=== PATIENT | female | born 1935 | race Caucasian/White ===

== ENCOUNTER 2016-09-17 10:20 | Inpatient (IN) | payer MEDICARE, OTHER ==
[2016-09-17] VITALS (9 sets, daily range): BP systolic 111–149; BP diastolic 60–86; PULSE 64–95; RESP 12–24; O2SAT 94–99
[~2016-09-17] VITALS: Ht 170.2 cm; Wt 100.4 kg
[2016-09-17] MEDS: Lactated Ringer's 1,000 ML IV SCH ×4 (05:00→16:52)
[2016-09-17] MEDS: CeFAZolin Inj 2 GM in IV Premix 1 EACH IV SCH ×2 (06:00→13:15)
[2016-09-17] MEDS: Phenazopyridine 97.5 mg Tablet PO SCH ×2 (06:00→12:15)
[~2016-09-17 10:20] MED LIST: ACET325T51 PO; ATEN100T PO; CHOL100045 PO; CITA20TA11 PO; CYAN10008 PO; CYCL5TAB PO; DIPH12.559 PO; ESTRADIOL VAGINAL; FURO40TA4 PO; GABA-500 PO; LISI40TA PO; POTA10TA14 PO; PRAV40TA PO; THIO300C PO; WARF3TAB7 PO
[2016-09-17 11:27] LABS: INR 1.07 ratio
[2016-09-17] MEDS ORDERED: WARF3TAB7 PO (12:02)
[2016-09-17] MEDS ORDERED: Lidocaine 1%-Epi 1:100,000 20 mL Inj SUBQ ONE (13:40)
[2016-09-17] MEDS ORDERED: Lactated Ringer's 1,000 ML IV SCH (13:41)
[2016-09-17] MEDS ORDERED: Lactated Ringer's 500 ML IV PRN (13:41)
--- NOTE | 2016-09-17 13:44 | PCM.HPANE ---
Patient Data Surgeon Admitting Provider: Attending Provider:Josue Young MD Primary Care Physician:Other,Physician Other Provider:Diana Kamara Anesthesia Reason for Visit Complete Vaginal Prolapse, Incontinence, Cystocele Ht/WT & BMI Height (Feet): 5 Height (Inches): 7 Weight (Kilograms): 99.8 Body Mass Index 34.00 Allergies Coded Allergies: hydromorphone (Verified Adverse Reaction, Severe, DELIRIUM, CONFUSION, 09/16) indomethacin (Verified Adverse Reaction, Severe, DECREASED LOC, LETHARGIC , 09/16/16) Past Anesthesia History Anesthesia History: Denies:: Abnormal Airway, Anesthesia Reactions, Difficult Intubation, Fam Anesthesia Reaction, Fam Malignant Hypertherm, Malignant Hyperthermia Diabetes History Hx Diabetes?: No Type of Diabetes: Type II Glycemic Control: Diet Controlled MRSA MRSA: No Medications Blood Thinner: Coumadin, Lovenox Hypertension Medication: Yes (LASIX,LISINOPRIL) Home Meds Incl Beta Yolis: Yes Date Beta Yolis Taken: September 17, 2016 Time Beta Yolis Taken: 0700 Reported Medications Warfarin Sodium 3 Mg Tablet4.5 Mg PO DAILY 30 Days Ref 0 09/17/16 Warfarin Sodium 3 Mg Tablet3 Mg PO DAILY 30 Days Ref 0 3MG/DAY EXCEPT FOR 4.5MG , THU. 09/16/16 diphenhydrAMINE HCl (Diphedryl)12.5 Mg/5 Ml Krklcf40 Mg PO Q4-6H PRN PRN 09/16/16 Cyanocobalamin (Vitamin B-12) (Vitamin B-12)1,000 Mcg Tablet1,000 Mcg PO DAILY 09/16/16 Cholecalciferol (Vitamin D3) (Vitamin D)1,000 Unit Capsule2,000 Unit PO DAILY # 1 BOTTLE Ref 0 09/16/16 Pravastatin 40 Mg Xdwetq18 Mg PO DAILY 30 Days Ref 0 10/01/13 Acetaminophen 325 Mg Dsmclq321 Mg PO Q4 PRN For Pain 10/01/13 Lisinopril 40 Mg Iqsdet68 Mg PO DAILY 30 Days Ref 0 10/01/13 Furosemide 40 Mg Vqojda49 Mg PO DAILY 30 Days 10/01/13 Citalopram 20 Mg Pcshpw41 Mg PO DAILY 30 Days Ref 0 10/01/13 Potassium Chloride ER (Klor-Con M10)10 Meq Tab.er.prt10 Meq PO DAILY 30 Days Ref 0 10/01/13 Gabapentin 100 Mg Ftasewb967 Mg PO TID 30 Days Ref 0 10/01/13 Atenolol 100 Mg Mytrdv970 Mg PO DAILY Ref 0 10/01/13 Discontinued Reported Medications [Estradiol] No Conflict Check1.5 Gm VAGINAL 2X/WEEK POWDER COMPOUNDED INTO VAGINAL CREAM 09/16/16 Cyclobenzaprine 5 Mg Tablet5 Mg PO TID PRN Spasm 09/16/16 Alpha Lipoic Acid 300 Mg Kyucqgr444 Mg PO DAILY 10/01/13 Enoxaparin (Lovenox)100 Mg/Ml Tksmyvo897 Mg SUBQ Q12 Ref 0 09/16/16 Latanoprost 2.5 Ml Drops1 Gtt AFFECT_EYE HS #1 BOTTLE 09/16/16 diphenhydrAMINE (Benadryl Allergy)12.5 Mg/5 Ml Pjunjx54 Ml PO Q4-6H PRN PRN 10/01/13 Cholecalciferol (Vitamin D3) (D3-2000)2,000 Unit Capsule2,000 Unit PO TID 10/01/[address] 40 Mg Tablet.dr40 Mg PO DAILY 30 Days Ref 0 10/01/13 Aspirin (Aspir 81)81 Mg Tablet.dr81 Mg PO DAILY Ref 0 10/01/13 History History of ENT Problems?: Yes HEENT History: Positive for:: Cataracts (bilat) Glaucoma Denies:: Abnormal Airway Difficult Intubation Dysphagia Hearing Problem Denture Type: None Teeth Condition: Within Normal Limits Other HEENT Pertinent History: S/P LT PAROTID GLAND RESECTION Hx of Heart Problems?: Yes Cardiovascular History: Positive for:: Atrial Fibrillation Cardiac Surgery (S/P HEART CATH 2006) Coronary Artery Disease (MILD) Edema (PEDAL RT>LT) Hypertension (HYPERLIPIDEMIA) Irregular Heartbeat (transient in 2007) Valvular Heart Disease (MILD MR,TR) Denies:: AICD Chest Pain Heart Murmur (ECHO 01/2013 EF 55-60%) Pacemaker Hx of Respiratory Problem?: No Respiratory History: Denies:: Asthma COPD Cough Hemoptysis Pneumonia Tuberculosis Use of C-PAP Machine Hx Neurologic Problems?: Yes Neurological History: Positive for:: CVA (2007 - no [id number]) Headaches TIA (2008) Denies:: Dementia (POOR MEMORY SINCE CVA) Other Neurological Pertinent: C/OF NEUROPATHY Hx of GI Problems?: Yes Other GI Pertinent History: C/OF DIARRHEA & FECAL INCONTINENCE Hx of Problems?: Yes Genitourinary History: Positive for:: Urinary Tract Infection (HX OF) Other Pertinent History: S/P COLPOCIEISIS,PERINEAORRHAPHY,MID-URETHRAL SLING Female Hx: Positive for:: Problems with Breasts? (S/P BREAST BX,PARTIAL MASTECTOMY ??CA) Denies:: Currently Endometriosis Pelvic Inflammatory Skin History: Positive for:: History Skin Disorders? (FACIAL ECZEMA, ACTINIC KERATOSIS) Denies:: Pressure Ulcers Hx Musculoskeletal Problems?: Yes Musculoskeletal History: Positive for:: Joint Replacement (S/P right TKA 2009 , left TKA 02/18 W/ POSTOP INFECTION) Osteoarthritis Denies:: Back Injury (C/OF LOWER BACK PAIN) Musculoskeletal Trauma (C/OF RT SHOULDER PAIN) Hx of Psycho/Social Problems?: Yes Psycho Social History: Positive for:: Anxiety Hx Depression Hx Surgeries?: Yes (BLADDER SLING,PERINORRHAPHY,B/L TKA,PAROTID GLAND EXC,VAG HYST/RSO,BREAST B) Hx Any Other Health Problems?: Yes Other History: Positive for:: Hospitalization (CARDIAC, LT KNEE INFECTION) Denies:: Cancer Endocrine Disease Thyroid Disease History Blood Transfusions: Positive for:: Accept Blood Products? Blood Transfusions Denies:: Blood Transfuse Reaction Hx Diabetes: No Hx Alcohol Use: Yes (quit many years ago)Hx Substance Use: NoHave You Smoked inLast 12 mo: No Stop/Bang S-Snoring: Do You Snore Loudly: No T-Tired: feel tired, fatigued: Yes O-Obsered: Observed not breath: No P-Blood Pressure: treated: Yes B- Body Mass Index > 35 kg/m2: No A- Age over 50: Yes N- Neck Large Circumference: Yes G- Gender Male: No GEOVANNA Total Score: 4 Risk Assessment Category Category 1A: Patient has history of documented sleep apnea, and HAS NOT received any narcotic, sedative or anesthesia administration during this stay. Category 1B: Patient has history of documented sleep apnea, and HAS received any narcotic , sedative or anesthesia administration during this stay Category 2: Patient has SUSPECTED Obstructive Sleep Apnea, and HAS received any narcotic , sedative or anesthesia administration during this stay. Category 3: Patient has SUSPECTED Obstructive Sleep Apnea and HAS NOT received narcotic, sedative or anesthesia administration during this stay. Category 4: Outpatient in Procedural Areas with known sleep apnea or who screen positive for High Risk via the STOP/BANG questionnaire. Exam Exam Vital Signs Vital Signs Date Time Temp Pulse Resp B/P Pulse Ox O2 Delivery O2 Flow Rate FiO2 09/17/16 11:17 36 69 16 149/80 94 Room Air General Appearance: Alert, Oriented X3, Cooperative, No Acute Distress HEENT/AIRWAY: MP 2, Neck Movement (FROM), Mouth Opening (3 FBMO) Lungs: Normal Air Movement Heart: Regular Rate/Rhythm Meds/Labs/Diagnostics Admission Meds Current Medications Lactated Ringer's (Lr) 1,000 ml @ 120 mls/hr Q8H20M IV Last administered on t 10:48; Start 09/17/16 at 05:00; Stop 09/17/16 at 13:19 Labs Test 09/17/16 11:00 Prothrombin Time 11.5sec (8.1-12.5) Prothromb Time International Ratio 1.07ratio Activated Partial Thromboplast Time 27.8sec (22.8-33.0) Plan Impression Patient chart reviewed, patient interviewed and anesthestic plan with risks, benefits, and alternatives discussed, and informed consent obtained. NPO per Anesth. Guidelines: Yes ASA Physical Status: ASA3 Severe Disease (A fib) Anesthetic Plan: GA Bene/Risks/Altern/Consents: Yes HP Complete Prior to Induction: Yes Harry Haile MD September 17, 2016 12:02
[2016-09-17] MEDS ORDERED: Phenylephrine 10,000 mCg/mL Inj IVPUSH PRN (13:45)
[2016-09-17] MEDS ORDERED: Labetalol 5 mg/mL 4 mL Inj IV PRN (13:45)
[2016-09-17] MEDS ORDERED: MetoCLOpramide 5 mg/mL 2 mL Inj IVPUSH PRN (13:45)
[2016-09-17] MEDS ORDERED: Atropine 0.4 mg/mL Inj IVPUSH PRN (13:45)
[2016-09-17] MEDS ORDERED: fentaNYL-PF 50 mCg/mL 2 mL Inj IVPUSH PRN (13:45)
[2016-09-17] MEDS ORDERED: Ondansetron 2 mg/mL 2 mL Inj IVPUSH PRN ×2 (13:45→16:55)
[2016-09-17] MEDS ORDERED: EPHEDrine Sulfate 50 mg/mL Inj IVPUSH PRN (13:45)
[2016-09-17] MEDS ORDERED: Acetaminophen IV 1,000 MG in IV Premix 1 EACH IV PRN (16:55)
[2016-09-17] MEDS ORDERED: oxyCODONE-Acetamin 5-325 mg Tablet PO PRN (16:55)
[2016-09-17] MEDS ORDERED: diphenhydrAMINE 25 mg Capsule PO PRN ×2 (16:55→17:05)
--- NOTE | 2016-09-17 17:18 | PCM.ANEP1 ---
Post Anesthesia Phase 1 PACU Phase 1 Assessment Vital Signs Vital Signs Date Time Temp Pulse Resp B/P Pulse Ox O2 Delivery O2 Flow Rate FiO2 09/17/16 17:15 84 14 137/86 94 Room Air 09/17/16 17:07 88 12 125/73 97 Room Air 09/17/16 16:59 76 12 111/60 99 Simple Mask 8 09/17/16 16:50 71 12 122/67 99 Simple Mask 8 09/17/16 16:44 36.5 76 24 122/72 99 Simple Mask 8 09/17/16 11:17 36 69 16 149/80 94 Room Air Anesthetic Administered: GA Level of Alertness: Awake, talking PARRY's with Equal Strength: Yes Pain: No Nausea or Vomiting: No Cardiovascular Function and Hy: Yes Oxygen Delivery: Simple Mask Lungs: Normal Air Movement Dermatome Level: Full Sensation Complications: No Follow up Care: No Harry Haile MD September 17, 2016 17:18
[2016-09-17] MEDS ORDERED: Lactated Ringer's 1,000 ML IV ONE (17:26)
[2016-09-17] MEDS ORDERED: EPHEDrine/NS 5 mg/mL 5 mL Syringe ONE (17:55)
[2016-09-17] MEDS ORDERED: MetoCLOpramide 5 mg/mL 2 mL Inj ONE (17:55)
[2016-09-17] MEDS ORDERED: fentaNYL-PF 50 mCg/mL 2 mL Inj ONE (17:55)
[2016-09-17] MEDS ORDERED: Propofol 10,000 mCg/mL 20 mL Inj ONE (17:55)
[2016-09-17] MEDS ORDERED: Furosemide 10 mg/mL 4 mL Inj ONE (17:55)
[2016-09-17] MEDS ORDERED: Ondansetron 2 mg/mL 2 mL Inj ONE (17:55)
--- NOTE | 2016-09-17 19:51 | NUR ---
Post Op Patient received to room 1017 s/p Colpectomy and colopecesis. Pt with laura pad small amount bloody drainage noted. Pt fairly drowsy upon arrival to floor unable to answer some questions just kept saying "I don't know". Patient does have history of cva in past with short term memory loss and delayed speech per family at bedside. Patient denied pain at this time. Rangel cath present.
--- NOTE | 2016-09-17 20:19 | PCM.SURGOP ---
Surgical Operative Report Date of Service: September 17, 2016 Pre Operative Diagnosis Complete POPQ stage 4 vaginal prolapse (apical, anterior and posterior segments) Recurrent stress incontinence Post Operative Diagnosis POPQ stage 4 complete vaginal prolapse (cystocele, rectocele, vault prolapse) Recurrent stress incontinence Procedure: 1. Colpectomy and colpocleisis 2. Posterior repair, levatorplasty and perineorrhaphy 3. Macroplastique urethral injection, cystoscopy Surgeon and Tandem Mill Operator: Surgeon: Josue Young MD Assistants: Emily Stoner Indication for Procedure Her assessment to date includes: 1. Vaginal vault prolapse after hysterectomy N99.3 (618.5): 2. Cystocele, midline N81.11 (618.01): 3. Rectocele N81.6 (618.04): 4. Urodynamically-confirmed recurrent Female stress incontinence N39.3 (625.6): Pt has has a previous history of colpocleisis, perineorrhaphy and Altis mid urethral sling on 02/15/15 by another physician. The surgery was complicated by bleeding on lovenox and readmission for monitoring following placement of Monsels and proctoswabs at the ED and then treatment of perineal pain with antibiotics. The patient is a candidate for surgical prolapse management in the form of a repeat colpectomy and colpocleisis, but this time I would perform a levatorplasty and perineorrhaphy which would result in an introitus 1 fingerbreadth in area. In addition, due to the finding of recurrent urodynamic stress incontinence, she will have a Macroplastique urethral injection. Preoperative medical and cardiac clearance has been granted. She will stop warfarin 4 d prior to surgery as suggested by the central office operator. The patient signed the consent form. She agreed with the risks, benefits, and alternatives to surgery. The risks included but not limited to recurrence or persistence of prolapse, recurrence of persistence of incontinence, development of voiding dysfunction, development of urinary urgency, urgency incontinence, frequency, and need for intermittent self-catheterization or prolonged indwelling catheterization, injury to other organs including bladder, bowel, nerves or blood vessels. Need for blood transfusion, need for temporary colostomy or urinary stenting. Development of vaginal scarring, dyspareunia, defecatory dysfunction, recurring pain, hematoma formation, urinary tract infection, cellulitis, necrotizing fascitis, and medical risks including myocardial infarction, stroke or VTE. The patient understood the risks and benefits and consented to surgery.. Findings: see dictation Procedure Details 1. Colpectomy and complete colpocleisis, Posterior repair/levatorplasty and perineorrhaphy, Cystoscopy The vagina was subcutaneously infiltrated with 0.5% lidocaine with 1/920234 epinephrine. The vagina was circumscribed by an incision at the site of the hymen and marked into quadrants. Each quadrant was removed by sharp dissection using Perez scissors. The fascia along the anterior segment was plicated in the midline to add an extra layer of support. Pursestring 2-0 vicryl sutures were placed. The leading edge of the soft tissue was inverted by the tip of a forceps. A series of pursestring sutures were tied sequentially, proximal to distal, with progressive inversion of the soft tissue before tying of each suture. Then a posterior repair with levatorplasty and perineorrhapy was performed. A large wedge of perineum was excised, extending laterally to the inferior vulva. The fascia along the posterior segment was plicated in the midline to add an extra layer of support. Then levatorplasty was performed by placating the levator complex at the midline with interrupted 2-0 vicryl suture, to narrow the genital hiatus. Care was taken to achieve good hemostasis using cautery and interrupted 2-0 Vicryl suture. Gelfoam was placed in the subvaginal area prior to vaginal closure. The vagina was reapproximated with continuous 3-0 vicryl suture. The perineum was approximated with interrupted 2-0 vicryl suture and the skin was closed with 3-0 vicryl suture in a subcuticular fashion. The resulting repair resulted in a vaginal caliber less than 1 finger- breadth. Cystoscopy was performed. Brisk spillage of pyridium-stained urine was noted at the left and right ureteric orifices. 2. Macroplastique urethral injection and cystoscopy A 30-degree cystoscope was inserted into the bladder. The bladder was filled to approximately 50% capacity with sterile water. The scope was retracted to visualize the bladder neck and location of the mid urethral position. The needle was then advanced through the working channel of the scope to visualize the needle tip. The needle was inserted into urethral wall, taking care to ensure that the needle bevel was facing the center of the urethral lumen. We used the tissue tunneling technique by orienting the needle with the bevel towards the urethral lumen at a 30- to 45-degree angle. The needle was advanced into the tissue to the first jim, which was 0.5 cm deep. The scope was reduced to 0 degrees. The needle was then advanced to a second jim, which was 1 cm deep. Then, 2.5 mL of the Macroplastique were then injected at the 6 o'clock position. Thirty seconds of waiting time elapsed before withdrawing the needle from the tissue to limit product extravasation. The same procedure was performed at the 2 and 10 o'clock positions. The volumes at the 2 and 10 o'clock positions were 1.25 mL of Macroplastique implant. The end result of the procedure revealed coaptation of the urethral mucosa at the level of the bladder neck. A 12 F nunez catheter was inserted to straight drainage. The blind end vagina was packed with 1/4 inch ribbon packing lubricated with KY jelly. She was taken to the recovery room in stable condition. All sponges and instruments were accounted for. EBL was 100 ml. Complications There were no periprocedural complications identified. Surgical Specimen Removed: No Specimen sent to Pathology: No Anesthetic Plan: GA Grafts, Implants: Implants-See Implant Record Output, Estimated Blood Loss: 100 (ml EBL) Blood Administration during almeida: No Drains: None Catheters: Urethral 2 Way Nunez (12 [place] Island[place]) Post Operative Plan Admit as inpatient. Voiding trial in the AM copies to: oJsue Young MD; Tawana Cordon MD; Emily Stnoer William Andre Z MD September 17, 2016 20:19
[2016-09-17] MEDS: Senna-Docusate 8.6-50 mg Tablet PO SCH (20:30)
[2016-09-18] VITALS: BP 129/84; PULSE 73; RESP 17; O2SAT 93
[2016-09-18] MEDS: Heparin 5,000 Unit/mL Inj SUBQ SCH ×2 (00:30→10:37)
[2016-09-18] MEDS: Lactated Ringer's 1,000 ML IV SCH ×2 (00:52→08:52)
--- NOTE | 2016-09-18 03:35 | NUR ---
Activity Patient A&OX3 and pleasant this evening. Denies any pain, but complains of headache. PO Tylenol given, and at reassessment patient states improvement. Rangel catheter is draining pink tinged urine to gravity. Magaly Pad has minimal/moderate sanguinous drainage. Patient is SL, due to tolerating oral fluids well. Patient has been sleeping well this shift so far. Will continue to monitor, and continue Q1 hour checks.
[2016-09-18 05:00] VITALS: BP 123/76; PULSE 77; RESP 17; O2SAT 94
[2016-09-18 05:50] LABS: BASOPHILS % (AUTO) 0.4 % (0-3); EOSINOPHILS % (AUTO) 0.5 % (0-5); MONOCYTES % (AUTO) 9.6 % (4-12); Mean Corpuscular Volume 93.6 fL (81-100); NEUTROPHILS % (AUTO) 86.5 % (40-74); Platelet Count 195 bil/L (150-400)
[2016-09-18 06:24] LABS: INR 1.1 ratio
[2016-09-18] MEDS ORDERED: Heparin 5,000 Unit/mL Inj SUBQ SCH (08:30)
[2016-09-18] MEDS: Senna-Docusate 8.6-50 mg Tablet PO SCH (08:30)
[2016-09-18 09:15] VITALS: BP 125/73; PULSE 100; RESP 18; O2SAT 93
--- NOTE | 2016-09-18 12:37 | PCM.DIGYN ---
Surgical Discharge Instruction Dates of Hospitalization Date of Hospital Admission September 17, 2016 at 17:54 Providers Admitting Physician: Josue Young MD Primary Care Physician: Other,Physician Attending Physician: Josue Young MD Diagnosis at Time of Discharge Diagnosis at time of discharge POPQ stage 4 complete vaginal prolapse (cystocele, rectocele, vault prolapse) Recurrent stress incontinence Post-operative diagnosis POPQ stage 4 complete vaginal prolapse (cystocele, rectocele, vault prolapse) Recurrent stress incontinence Problems: Diet Discharge Diet: No restrictions Activity Discharge Activity-General: Restrict lifting to no greater than (10 lb for 6 wk ) Dressing and Incisional Care Hygiene: May shower Follow Up Plan Follow-up appointment: Weeks ([address] young's MA, then [address] Young ) Call your provider for: Fever, Chills, Shortness of breath, Vomitting, Heavy vaginal bleeding, Increasing pain Josue Young MD September 18, 2016 12:36
[2016-09-18 13:16] VITALS: BP 110/66; PULSE 72; RESP 18; O2SAT 93
--- NOTE | 2016-09-18 13:43 | NUR ---
Social Work Note - Initial assessment and discharge Duran Morfin is a 80 yr old who is admitted for surgery - to correct a complete vaginal prolapse. EMR reviewed: Pt has Medicare and [employer] insurance. Her PCP is at [facility] in [facility]. Pt's son Petr Morfin is her DPOA - paperwork on file at [facility] - INSURANCE CODER asked family to bring it in next visit. See attached CM initial assessment. INSURANCE CODER met with pt - pt's son also in the room. Pt lives at [facility] - Lives in an independent apartment. She is independent at baseline- still drives small distances. Has a walker and cane, but does not use them. She is interested in Home Health - has used [facility] in the past. INSURANCE CODER paged to see about Home health referral. Plan: Home with family in POV with [facility] DICKERSON RN PT. MICHAEL Maya Addendum: 09/18/16 at 1358 by RADHA HAMPTON SS Amended: Links added.
--- NOTE | 2016-09-18 14:39 | NUR ---
Voiding Trial Vaginal packing removed and 300cc sterile water placed into bladder. Nunez removed at 1055. Pt up to BR and unable to void. Pt tried voiding once again at 1135 and was still unable. Supplies gathered and 12 macedonian Nunez attempted by [address] Young able to place. 400cc urine out of nunez. Pt educated how to cap nunez and to drain every few hours and attach bag at night. Leave urinary catheter in place until she follows up with MD. Pt has minimal vaginal bleeding and peripad in place. Bed in low, call light in reach.
--- NOTE | 2016-09-18 17:59 | NUR ---
Discharge Pt discharged at 1620 in w/c to private vehicle with son. Rangel with cap in place and pt educated on how to drain and set up bag at night. Lovenox injection given and warfarin given prior to discharge and pt teaching on lovenox done. No c/o pain, VSS, PARRY, A&O x 3. New peripad in place and only minimal vaginal bleeding. Pt has discharge instructions, care notes and rx's. All questions answered and pt has belongings. Pt understands when to make f/u appts and has 12 Fr cath for f/u appt. Pt understands home health will be seeing her tomorrow. IV removed intact.
--- NOTE | 2016-09-18 23:21 | PCM.PNSURG ---
Subjective Date of Service: September 18, 2016 Date of Service: September 18, 2016 Visit Information: Reason for Visit Complete Vaginal Prolapse, Incontinence, Cystocele Surgery/Surgery Date Post-Op Day # 1 Date of Admission: September 17, 2016 at 17:54 Hospital Day #2 Subjective: AVSS ambulatory tolerating diet failed voiding trial pain control adequate minimal vaginal lochia OR explained hct stable and normal Postop General: No Complaints Gastrointestinal: Good Appetite Pain Management: PO Postop Activity: Ambulating Independently Objective Intake and Output- Last 8 Hour 09/18/16 Cumulative From/Thru 07:00 09/16/16 12:50 - 09/18/16 05:41 Intake Total 800 ml 1950 ml Output Total 650 ml 2450 ml Balance 150 ml -500 ml Intake Oral 800 ml 800 ml IV Total 1150 ml Output Urine Total 650 ml 2250 ml Estimated Blood Loss 200 ml # Bowel Movements 0 0 General: Alert, Oriented X3, Cooperative Lungs: Clear to Auscultation Abdomen: Benign, Soft Catheters: Urethral 2 Way Rangel (as patient failed the voiding trial, I reinserted a 12F catheter into the bladder with the aid of the bottom half of a speculum in the vagina) Result Diagram: 09/18/16 0522 Assessment & Plan Impression 1. stable for discharge 2. history of afib and on chronic warfarin Problems: Plan In consultation with the hospital pharmacist, a family meeting was performed to discuss the risk vs benefit for Lovenox bridging. She has a prior hx of surgery complicated with readmission due to bleeding from Lovenox. On the other hand, her risk of stroke (hypercoagulability after surgery, hx afib and restarting of Warfarin) was estimated to be around 2% by the consulting pharmacist. The pharmacist also spoke to the patient's histology technologist who agrees with the use of bridging Lovenox. The patient and her son have agreed to 3 days of Lovenox starting today and concurrent use of Warfarin, the latter of which should be therapeutic in 3-4 d. She needs f/u with the anticoagulation clinic next week, with Dr. Young's MA in 1 wk (for a voiding trial), and with Dr. Young in 2 wk. She should also f/u with her family doctor as her preop Cr was 1.5. We have ordered home visits by a nurse to help her with catheter plugging/ unplugging and temporary injection of Lovenox. The son is also willing to learn to administer the Lovenox. VTE Prophylaxis: Sub-Q Enoxaparin (started today for 3 d of bridging.) Resuscitation Status: CPR: Attempt Resuscitation copies to: Josue Young MD; Yaya Weber MD; Tawana Cordon MD, William Andre Z MD September 18, 2016 23:21
--- NOTE | 2016-09-18 23:29 | PCM.DC.SUR ---
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 Young as directed Onset Date: Unknown Status: Acute ICD Code: N81.9 (2) Stress incontinence in female Onset Date: Unknown Status: Acute ICD Code: N39.3 (3) Cystocele Onset Date: Unknown Status: Acute ICD Code: N81.10 Operation 1. Colpectomy and colpocleisis 2. Posterior repair, levatorplasty and perineorrhaphy 3. Macroplastique urethral injection, cystoscopy Brief History and Physical: Pt has has a previous history of colpocleisis, perineorrhaphy and Altis mid urethral sling on 02/15/15 by another physician. The surgery was complicated by bleeding on lovenox and readmission for monitoring following placement of Monsels and proctoswabs at the ED and then treatment of perineal pain with antibiotics. She has recurrent symptoms of vaginal prolapse and incontinence. Physical exam recently revealed a POPQ stage 4 complete vaginal prolapse. Recurrent stress incontinence was confirmed urodynamically. The patient is a candidate for surgical prolapse management in the form of a repeat colpectomy and colpocleisis, but this time I would perform a levatorplasty and perineorrhaphy which would result in an introitus 1 fingerbreadth in area. In addition, due to the finding of recurrent urodynamic stress incontinence, she will have a Macroplastique urethral injection. Preoperative medical and cardiac clearance has been granted. She will stop warfarin 4 d prior to surgery as suggested by the entrepreneurial finance professor. The patient signed the consent form. She agreed with the risks, benefits, and alternatives to surgery. The risks included but not limited to recurrence or persistence of prolapse, recurrence of persistence of incontinence, development of voiding dysfunction, development of urinary urgency, urgency incontinence, frequency, and need for intermittent self-catheterization or prolonged indwelling catheterization, injury to other organs including bladder, bowel, nerves or blood vessels. Need for blood transfusion, need for temporary colostomy or urinary stenting. Development of vaginal scarring, dyspareunia, defecatory dysfunction, recurring pain, hematoma formation, urinary tract infection, cellulitis, necrotizing fascitis, and medical risks including myocardial infarction, stroke or VTE. The patient understood the risks and benefits and consented to surgery.. Hospital Course: On POD#1: Subjective: AVSS ambulatory tolerating diet failed voiding trial pain control adequate minimal vaginal lochia OR explained hct stable and normal Postop General: No Complaints Gastrointestinal: Good Appetite Pain Management: PO Postop Activity: Ambulating Independently Surgical Exam Objective Intake and Output- Last 8 Hour 5/11/17 Cumulative From/Thru 07:00 5/9/17 12:50 - 5//17 05:41 Intake Total 800 ml 1950 ml Output Total 650 ml 2450 ml Balance 150 ml -500 ml Intake Oral 800 ml 800 ml IV Total 1150 ml Output Urine Total 650 ml 2250 ml Estimated Blood Loss 200 ml # Bowel Movements 0 0 General: Alert, Oriented X3, Cooperative Lungs: Clear to Auscultation Abdomen: Benign, Soft Catheters: Urethral 2 Way Rangel (as patient failed the voiding trial, I reinserted a 12F catheter into the bladder with the aid of the bottom half of a speculum in the vagina) Disposition: Stable for discharge home on POD#1 Follow-up Plan: In consultation with the hospital pharmacist, a family meeting was performed to discuss the risk vs benefit for Lovenox bridging. She has a prior hx of surgery complicated with readmission due to bleeding from Lovenox. On the other hand, her risk of stroke (hypercoagulability after surgery, hx afib and restarting of Warfarin) was estimated to be around 2% by the consulting pharmacist. The pharmacist also spoke to the patient's entrepreneurial finance professor who agrees with the use of bridging Lovenox. The patient and her son have agreed to 3 days of Lovenox starting today and concurrent use of Warfarin, the latter of which should be therapeutic in 3-4 d. She needs f/u with the anticoagulation clinic next week, with Dr. Young's MA in 1 wk (for a voiding trial), and with Dr. Young in 2 wk. She should also f/u with her family doctor as her preop Cr was 1.5. We have ordered home visits by a nurse to help her with catheter plugging/ unplugging and temporary injection of Lovenox. The son is also willing to learn to administer the Lovenox. Acetaminophen (Acetaminophen) 325 Mg Tablet 325 MG PO Q4 PRN PRN For Pain ( Reported) Atenolol (Atenolol) 100 Mg Tablet 100 MG PO DAILY (Reported) Cholecalciferol (Vitamin D3) (Vitamin D) 1,000 Unit Capsule 2,000 UNIT PO DAILY (Reported) Citalopram (Citalopram) 20 Mg Tablet 20 MG PO DAILY (Reported) Cyanocobalamin (Vitamin B-12) (Vitamin B-12) 1,000 Mcg Tablet 1,000 MCG PO DAILY (Reported) Furosemide (Furosemide) 40 Mg Tablet 40 MG PO DAILY (Reported) Gabapentin (Gabapentin) 100 Mg Capsule 100 MG PO TID (Reported) Lisinopril (Lisinopril) 40 Mg Tablet 40 MG PO DAILY (Reported) Potassium Chloride ER (Klor-Con M10) 10 Meq Tab.er.prt 10 MEQ PO DAILY (Reported ) Pravastatin (Pravastatin) 40 Mg Tablet 40 MG PO DAILY (Reported) Warfarin Sodium (Warfarin Sodium) 3 Mg Tablet 3 MG PO DAILY (Reported) 3MG/DAY EXCEPT FOR 4.5MG , THU. Warfarin Sodium (Warfarin Sodium) 3 Mg Tablet 4.5 MG PO DAILY (Reported) diphenhydrAMINE HCl (Diphedryl) 12.5 Mg/5 Ml Liquid 50 MG PO Q4-6H PRN PRN PRN ( Reported) Discharge Medications: Lovenox for 3 days (day 1 includes dose given in hospital on POD#1) copies to: Josue Young MD; Yaya Weber MD; Tawana Cordon MD, William Andre Z MD September 18, 2016 23:29
== END 2016-09-18 16:23 | disposition home health service (06) | DRG 747 ==
LOC: SAS 10:20 → OSC 17:54
PROVIDERS: ADMIT Obstetrics & Gynecology; ATTEND Obstetrics & Gynecology
PROC: 0JQC0ZZ Repair Pelvic Region Subcutaneous Tissue and Fascia, Open Approach (ICD-10-PCS; 2016-09-17)
PROC: 3E0K8GC Introduction of Other Therapeutic Substance into Genitourinary Tract, Via Natural or Artificial Opening Endoscopic (ICD-10-PCS; 2016-09-17)
PROC: 0WQN0ZZ Repair Female Perineum, Open Approach (ICD-10-PCS; principal; 2016-09-17 12:30)
DX: N99.3 Prolapse of vaginal vault after hysterectomy (principal); N39.3 Stress incontinence (female) (male); E11.9 Type 2 diabetes mellitus without complications; N36.42 Intrinsic sphincter deficiency (ISD); I48.2 Chronic atrial fibrillation; Z79.01 Long term (current) use of anticoagulants